=== PATIENT | male | born 2000 | race African-American/Black ===

== ENCOUNTER 2021-02-19 16:14 | Emergency (ER) | payer SELFPAY ==
[~2021-02-19] VITALS: Ht 177.8 cm; Wt 70.5 kg
[2021-02-19 16:19] VITALS: BP 122/66
== END 2021-02-19 17:49 | disposition left against medical advice (07) ==
LOC: EMS 16:14
DX: R51.9 Headache, unspecified (principal); Z53.21 Procedure and treatment not carried out due to patient leaving prior to being seen by health care provider